=== PATIENT | male | born 2000 | race Caucasian/White ===

== ENCOUNTER 2022-05-24 15:05 | Emergency (ER) | payer MEDICAID ==
[~2022-05-24] VITALS: Ht 177.8 cm; Wt 65.9 kg
[2022-05-24 16:10] VITALS: BP 122/67
[2022-05-24] MEDS ORDERED: IBUP-1984 PO (16:46)
[2022-05-24] MEDS ORDERED: CYCL-1 PO (16:46)
[2022-05-24] MEDS: ketorolac tromethamine 15mg/ml inj. IM ONE (16:50)
[2022-05-24] MEDS: cyclobenzaprine 10mg tablet PO ONE (16:50)
== END 2022-05-24 16:58 | disposition home or self-care (01) ==
LOC: ER 15:05
DX: S29.012A Strain of muscle and tendon of back wall of thorax, initial encounter (principal); X58.XXXA Exposure to other specified factors, initial encounter; Y93.89 Activity, other specified; Y92.89 Other specified places as the place of occurrence of the external cause; Y99.8 Other external cause status
CPT/HCPCS: 96372; 99283; J1885

== ENCOUNTER 2022-09-20 01:12 | Emergency (ER) | payer MEDICAID ==
[~2022-09-20] VITALS: Ht 177.8 cm; Wt 63.6 kg
[~2022-09-20 01:12] MED LIST: CYCL-1 PO
[2022-09-20 01:31] VITALS: BP 111/59
== END 2022-09-20 03:47 | disposition left against medical advice (07) ==
LOC: ER 01:14
DX: R07.9 Chest pain, unspecified (principal); Z53.21 Procedure and treatment not carried out due to patient leaving prior to being seen by health care provider
CPT/HCPCS: 71045; 93005

== ENCOUNTER 2023-09-30 17:34 | Emergency (ER) | payer MEDICAID ==
[~2023-09-30] VITALS: Ht 177.8 cm; Wt 68.2 kg
[2023-09-30] MEDS ORDERED: HYDROcodone/acetaminophen 5mg/325mg tablet PO ONE (17:45)
[2023-09-30] MEDS ORDERED: proparacaine 0.5% ophthalmic drops 15ml EACHEYE ONE (19:00)
[2023-09-30 19:06] VITALS: BP 116/71; PULSE 76; TEMP 98; O2SAT 98
[2023-09-30] MEDS ORDERED: POLOS EACHEYE (19:14)
[2023-09-30] MEDS ORDERED: polymyxin B sulf/tmp ophth drops 10ml LEFTEYE ONE (19:25)
[2023-09-30 19:37] VITALS: RESP 17
--- NOTE | 2023-09-30 22:07 | NUR ---
I have reviewed and agree with all interventions, assessments performed and documented by [employer]
== END 2023-09-30 22:09 | disposition home or self-care (01) ==
LOC: ER 17:35
DX: S05.02XA Injury of conjunctiva and corneal abrasion without foreign body, left eye, initial encounter (principal); Y04.8XXA Assault by other bodily force, initial encounter; Y93.89 Activity, other specified; Y92.89 Other specified places as the place of occurrence of the external cause; Y99.8 Other external cause status
CPT/HCPCS: 70450; 70486; 99284

== ENCOUNTER 2023-10-02 15:05 | Emergency (ER) | payer MEDICAID ==
[~2023-10-02 15:05] MED LIST changes: +POLOS EACHEYE
== END 2023-10-02 15:13 | disposition left against medical advice (07) ==
LOC: ER 15:06
DX: Z00.8 Encounter for other general examination (principal); Z53.21 Procedure and treatment not carried out due to patient leaving prior to being seen by health care provider
CPT/HCPCS: 99281

== ENCOUNTER 2024-10-14 07:22 | Emergency (ER) | payer MEDICAID ==
[~2024-10-14] VITALS: Ht 175.3 cm; Wt 59.1 kg
[~2024-10-14 07:22] MED LIST changes: -POLOS EACHEYE
[2024-10-14 07:29] VITALS: TEMP 97.8
[2024-10-14] MEDS: TETanus/Pertussis (Acell)/Diphther VAC/PF (Tdap-Adult) 0.5ml syringe IMVAC ONE (09:54)
[2024-10-14] MEDS: LIDOcaine 1% 30ml preserv. free vial SQ STA (09:55)
[2024-10-14 10:37] VITALS: BP 125/77; PULSE 74; RESP 18; O2SAT 98
== END 2024-10-14 10:38 | disposition home or self-care (01) ==
LOC: ER 07:24
DX: S61.411A Laceration without foreign body of right hand, initial encounter (principal); W26.8XXA Contact with other sharp object(s), not elsewhere classified, initial encounter; Y93.89 Activity, other specified; Y92.89 Other specified places as the place of occurrence of the external cause; Y99.8 Other external cause status
CPT/HCPCS: 12001; 90471; 90715; 99283; A6258